=== PATIENT | female | born 1955 | race Caucasian/White ===

== ENCOUNTER 2017-02-14 06:54 | Day surgery (SDC) | payer BC ==
--- NOTE | ~2017-02-14 | EGD ---
EGD REPORT [facility] [address] [address] NAME: NEMESIO BREWSTER : [birth year] STATUS : [facility]#: [id number] AGE: 61 ADM/REG DATE : 02/14/17 MR#: [id number] REPORT SERV DATE: 02/14/17 DICTATED BY: YOSELYN BERNABE DATE: 02/14/17 REPORT STATUS : Draft TRANSCRIBED BY: [employer] DATE: 02/14/17 [facility] Center Patient Name: Nemesio Brewster Date of : 1955 Attending MD: YOSELYN BERNABE MD Procedure Date No Time: 02/14/2017 Procedure: Colonoscopy Indications: Screening for colorectal malignant neoplasm Referring MD: KRISTA KIM MD Medicines: as per anesthesia Complications: No immediate complications. Procedure: Pre-Anesthesia Assessment: - ASA Grade Assessment: II - A patient with mild systemic disease. After I obtained informed consent, the scope was passed under direct vision. Throughout the procedure, the patient's blood pressure, pulse, and oxygen saturations were monitored continuously. The PCF [id number] was introduced through the anus and advanced to the cecum, identified by appendiceal orifice and ileocecal valve. The colonoscopy was performed without difficulty. The patient tolerated the procedure. The quality of the bowel preparation was adequate to identify polyps. Findings: The perianal and digital rectal examinations were normal. The colon (entire examined portion) appeared normal. Impression: - The entire examined colon is normal. Recommendation: - Repeat colonoscopy in 10 years for surveillance. Procedure Code(s): --- Professional --- 43970, Colonoscopy, flexible, proximal to splenic flexure; diagnostic, with or without collection of specimen(s) by brushing or washing, with or without colon decompression (separate procedure) Diagnosis Code(s): --- Professional --- Z12.11, Encounter for screening for malignant neoplasm of colon CPT copyright 2013 [employer]. All rights reserved. EGD REPORT [facility] [address] [address] NAME: NEMESIO BREWSTER : [birth year] STATUS : [facility]#: [id number] AGE: 61 ADM/REG DATE : 02/14/17 MR#: [id number] REPORT SERV DATE: 02/14/17 DICTATED BY: YOSELYN BERNABE DATE: 02/14/17 REPORT STATUS : Draft TRANSCRIBED BY: [employer] DATE: 02/14/17 The codes documented in this report are preliminary and upon community health nursing director review may be revised to meet current compliance requirements. YOSELYN BERNABE MD 02/14/2017 9:06 AM This report has been signed electronically. Number of Addenda: 0 Note Initiated On: 02/14/2017 8:41 AM Scope Withdrawal Time 0 hours 7 minutes 2 seconds [address] [facility] [id number]
[~2017-02-14 06:54] MED LIST: ESTRACE0.5 MG PO; ESTRADIOL1 MG PO; MEGA RED FISH OIL PO; NEXIUM20 M1 PO; PAMPRIN PO; PROBIOTIC PO
== END 2017-02-14 23:59 | disposition home health service (06) ==
LOC: DMU 06:54
PROVIDERS: Internal Medicine Gastroenterology
PROC: 0DJD8ZZ Inspection of Lower Intestinal Tract, Via Natural or Artificial Opening Endoscopic (ICD-10-PCS; principal; 2017-02-14 08:30)
DX: Z12.11 Encounter for screening for malignant neoplasm of colon (principal); Z90.49 Acquired absence of other specified parts of digestive tract; Z90.710 Acquired absence of both cervix and uterus; Z98.890 Other specified postprocedural states